=== PATIENT | male | born 1950 ===

== ENCOUNTER 2020-08-13 12:41 | Outpatient (CLI) | payer MEDICARE, SELFPAY ==
--- NOTE | 2020-08-13 | DI.US_ITS ---
EXAM: US UPPER EXTREMITY VENOUS RT CLINICAL HISTORY: SWELLING RT ARM M79.89. TECHNIQUE: Ultrasound performed using standard protocol. COMPARISON: No exams were available for comparison FINDINGS: Duplex venous ultrasound was performed according to the usual protocol. The examination included the visualized portions the right subclavian vein as well as the axillary, basilic, brachial, and cephal ic veins as well as the ulnar, radial, and cubital veins. The deep veins are freely compressible thr oughout. 2D and Doppler evaluation are unremarkable. No gross superficial thrombus identified. IMPRESSION: No evidence of superficial or deep venous thrombosis of the right upper extremity. DATA REPOSITORY:
== END 2020-08-13 13:01 ==
PROVIDERS: PCP Family Medicine; Visit Provider Family Medicine
DX: R22.31 Localized swelling, mass and lump, right upper limb (principal)
CPT/HCPCS: 93971